=== PATIENT | male | born 1975 | race Two or more races ===

== ENCOUNTER 2017-04-02 13:27 | Emergency (ER) | payer SELFPAY ==
[~2017-04-02] VITALS: Ht 165.1 cm; Wt 99.8 kg
--- NOTE | 2017-04-02 13:36 | NUR ---
BB SELF FROM WORK FOR ALLERGIC REACTION TO PINEAPPLE SOB, THROAT AND LIP SWELLING
--- NOTE | 2017-04-02 15:23 | NUR ---
GIVEN FAMOTIDINE 40 MG IV PUSH PER AMY GARCIA INSTEAD OF MIX W [id number]
--- NOTE | 2017-04-02 15:47 | NUR ---
IV removed. Catheter intact and site benign. Pressure and 4x4 applied to site. No bleeding noted.
--- NOTE | 2017-04-02 15:47 | NUR ---
Patient discharged to home in stable condition. Written and verbal after care instructions given. Patient verbalizes understanding of instruction.
[2017-04-02 15:57] VITALS: BP 140/90
== END 2017-04-02 15:58 | disposition home or self-care (01) ==
LOC: ER 13:30
DX: L27.2 Dermatitis due to ingested food (principal); I10 Essential (primary) hypertension; Z91.018 Allergy to other foods
CPT/HCPCS: A4606; J2930; J3490; J7060; Z7610

== ENCOUNTER 2017-05-12 12:23 | Inpatient (IN) | payer MEDICAID ==
[~2017-05-12] VITALS: Ht 165.1 cm; Wt 99.8 kg
[2017-05-12 13:00] VITALS: BP 123/88
[2017-05-12] MEDS ORDERED: ASPIRIN 325 MG TABLET PO ONE (13:00)
[2017-05-12] MEDS ORDERED: NITROGLYCERIN PACKET 1 GM PACKET TD ONE (13:00)
[2017-05-12] MEDS ORDERED: NITROGLYCERIN PACKET 1 GM PACKET ONE (13:00)
[2017-05-12] MEDS ORDERED: ASPIRIN 325 MG TABLET ONE (13:01)
[2017-05-12 13:25] LABS: BASOPHILS # (AUTO) 0.1 /CMM (0.0-0.2); BASOPHILS % (AUTO) 0.9 % (0.0-2.0); EOSINOPHILS # (AUTO) 0.1 /CMM (0.0-0.7); HEMATOCRIT 45 % (39-51); HEMOGLOBIN 15.1 g/dL (13.5-17.5); LYMPHOCYTES # (AUTO) 2.3 /CMM (0.8-4.8); MEAN CORPUSCULAR HEMOGLOBIN 29 PG (26.0-33.0); MEAN CORPUSCULAR HGB CONC 34 g/dl (31.0-36.0); MEAN CORPUSCULAR VOLUME 87 fL (80-96); MONOCYTES # (AUTO) 0.6 /CMM (0.1-1.30); MONOCYTES % (AUTO) 5.5 % (2.0-12.0); NEUTROPHILS # (AUTO) 7.4 /CMM (1.8-8.9); NEUTROPHILS % (AUTO) 70.6 % (43.0-81.0); PLATELET COUNT (AUTO) 306 /CMM (150-450); RDW COEFFICIENT OF VARIATION 14.3 (11.5-15.0); RED BLOOD CELL COUNT(AUTO) 5.21 MIL/uL (4.5-6.0); WHITE BLOOD COUNT (AUTO) 10.6 K/uL (4.3-11.0)
[2017-05-12 13:35] LABS: CARBON DIOXIDE 25 mmol/L (21-32); CHLORIDE 101 mmol/L (98-107); CREATININE 1.3 mg/dL (0.6-1.3); GLUCOSE 124 mg/dL (74-106); POTASSIUM 3.9 mmol/L (3.5-5.1); SODIUM SERUM 136 mmol/L (136-145); UREA NITROGEN, BLOOD 17 mg/dL (7-18)
[2017-05-12] MEDS ORDERED: RANI150T8 PO (13:39)
[2017-05-12] MEDS ORDERED: ATOR40TA PO (13:39)
[2017-05-12] MEDS ORDERED: ASPI-991 PO (13:39)
[2017-05-12] MEDS ORDERED: LISI1TAB9 PO (13:39)
[2017-05-12 13:40] LABS: ALANINE AMINOTRANSFERASE 32 U/L (12-78); ALBUMIN 3.4 g/dL (3.4-5.0); ALKALINE PHOSPHATASE 95 U/L (46-116); ASPARTATE AMINOTRANSFERASE 18 U/L (15-37); BILIRUBIN,DIRECT 0.1 mg/dL (0.0-0.2); BILIRUBIN,TOTAL 0.3 mg/dL (0.2-1.0); TROPONIN I < 0.017 ng/mL (0.00-0.056)
[2017-05-12 13:45] LABS: INR 0.93 (0.87-1.13); PROTHROMBIN TIME 9.7 SECS (9.5-12.7)
[2017-05-12] MEDS ORDERED: Z GUARD REMEDY 2 OZ OINT TP PRN (14:30)
[2017-05-12] MEDS ORDERED: ONDANSETRON HCL/PF 4 MG/2 ML VIAL IVP PRN (14:30)
[2017-05-12] MEDS ORDERED: MAG HYDROX/AL HYDROX/SIMETH 30 ML UDC PO PRN (14:30)
[2017-05-12] MEDS ORDERED: ACETAMINOPHEN 325 MG TABLET PO PRN (14:30)
[2017-05-12] MEDS ORDERED: ENOXAPARIN SODIUM 40 MG/0.4 ML DISP.SYRIN SQ SCH (14:30)
[2017-05-12] MEDS ORDERED: MORPHINE SULFATE INJ 2 MG/ML DISP.SYRIN IV PRN (14:30)
[2017-05-12] MEDS ORDERED: MAGNESIUM HYDROXIDE 30 ML UDC PO PRN (14:30)
[2017-05-12 14:40] VITALS: BP 123/86
[2017-05-12] MEDS: NITROGLYCERIN PACKET 1 GM PACKET TOP SCH ×2 (15:00→21:43)
[2017-05-12] MEDS: HYDROCODONE/APAP 5/325MG 1 EACH TABLET PO PRN ×2 (15:59→21:56)
[2017-05-12 16:00] VITALS: BP_SYST 109; BP_SYST 123; BP_DIAS 59; BP_DIAS 83
[2017-05-12] MEDS ORDERED: HYDROMORPHONE INJ 2 MG/ML DISP.SYRIN IV PRN (16:00)
[2017-05-12 20:00] VITALS: BP 121/77
[2017-05-12] MEDS: FAMOTIDINE (20 MG) 20 MG TABLET PO SCH (21:43)
[2017-05-12] MEDS ORDERED: ZOLPIDEM TARTRATE 5 MG TABLET PO PRN (22:00)
[2017-05-12] MEDS ORDERED: ATORVASTATIN 40 MG TABLET PO SCH (22:00)
[2017-05-13] VITALS: BP_SYST 123; BP_SYST 141; BP_DIAS 70; BP_DIAS 74
[2017-05-13 04:00] VITALS: BP 115/73
[2017-05-13] MEDS: NITROGLYCERIN PACKET 1 GM PACKET TOP SCH (04:55)
[2017-05-13] MEDS: HYDROCODONE/APAP 5/325MG 1 EACH TABLET PO PRN (04:57)
[2017-05-13 07:37] LABS: BASOPHILS # (AUTO) 0.1 /CMM (0.0-0.2); BASOPHILS % (AUTO) 1.5 % (0.0-2.0); EOSINOPHILS # (AUTO) 0.3 /CMM (0.0-0.7); EOSINOPHILS % (AUTO) 3.7 % (0.0-6.0); HEMATOCRIT 43 % (39-51); HEMOGLOBIN 14.5 g/dL (13.5-17.5); LYMPHOCYTES # (AUTO) 2.7 /CMM (0.8-4.8); LYMPHOCYTES % (AUTO) 31.6 % (20.0-44.0); MEAN CORPUSCULAR HEMOGLOBIN 30 PG (26.0-33.0); MEAN CORPUSCULAR HGB CONC 34 g/dl (31.0-36.0); MEAN CORPUSCULAR VOLUME 87 fL (80-96); MONOCYTES # (AUTO) 0.6 /CMM (0.1-1.30); MONOCYTES % (AUTO) 7.4 % (2.0-12.0); NEUTROPHILS # (AUTO) 4.7 /CMM (1.8-8.9); NEUTROPHILS % (AUTO) 55.8 % (43.0-81.0); PLATELET COUNT (AUTO) 297 /CMM (150-450); RDW COEFFICIENT OF VARIATION 14.5 (11.5-15.0); RED BLOOD CELL COUNT(AUTO) 4.91 MIL/uL (4.5-6.0); WHITE BLOOD COUNT (AUTO) 8.5 K/uL (4.3-11.0)
[2017-05-13 08:00] VITALS: BP 120/93
[2017-05-13 08:02] LABS: CALCIUM, SERUM 9.2 mg/dL (8.5-10.1); CREATININE 1.3 mg/dL (0.6-1.3); MAGNESIUM 1.8 mg/dL (1.8-2.4); PHOSPHORUS 3.6 mg/dL (2.5-4.9); POTASSIUM 4.2 mmol/L (3.5-5.1)
[2017-05-13] MEDS: FAMOTIDINE (20 MG) 20 MG TABLET PO SCH (08:06)
[2017-05-13] MEDS ORDERED: LISINOPRIL (10MG) 10 MG TABLET PO SCH (09:00)
[2017-05-13] MEDS ORDERED: ASPIRIN EC 81 MG TABLET.DR PO SCH (09:00)
[2017-05-13] MEDS ORDERED: CARVEDILOL 6.25 MG TABLET PO SCH (09:30)
[2017-05-13 09:46] VITALS: BP 120/83
== END 2017-05-13 15:10 | disposition home or self-care (01) | DRG 203 ==
LOC: ER 12:25 → TELE 14:10 → MED 05-13 11:13
PROVIDERS: ADMIT Internal Medicine; ATTEND Internal Medicine
DX: M94.0 Chondrocostal junction syndrome [Tietze] (principal); I10 Essential (primary) hypertension; E78.5 Hyperlipidemia, unspecified; Z79.899 Other long term (current) drug therapy; Z86.73 Personal history of transient ischemic attack (TIA), and cerebral infarction without residual deficits; E66.9 Obesity, unspecified; Z68.36 Body mass index [BMI] 36.0-36.9, adult; R73.9 Hyperglycemia, unspecified
CPT/HCPCS: 36415; 71010-TC; 80048-TC; 80061-TC; 80076-TC; 83735-TC; 84100-TC; 84484-TC; 85025-TC; 85730-TC; 87081-TC; 93307-TC; J1650; Z7610